=== PATIENT | female | born 1965 | race African-American/Black ===

== ENCOUNTER 2018-02-11 12:45 | Emergency (ER) | payer MEDICAID, OTHER ==
[~2018-02-11] VITALS: Ht 167.6 cm; Wt 78.0 kg
[~2018-02-11 12:45] MED LIST: CRAN1CAP5; UNK MEDS
[2018-02-11] MEDS ORDERED: HYDROCODONE/APAP 7.5/325MG 1 TAB TABLET PO PRN (16:45)
[2018-02-11] MEDS ORDERED: LIDOCAINE HCL 4% CREAM 76GM TUBE TP ONE (16:45)
[2018-02-11 18:45] VITALS: BP 123/88
[2018-02-11] MEDS ORDERED: HYDROCORTISONE 2.5% RECTAL CREAM 30GM PR SCH (21:00)
== END 2018-02-11 18:58 | disposition home or self-care (01) ==
LOC: ER 12:45
DX: K64.4 Residual hemorrhoidal skin tags (principal); F17.200 Nicotine dependence, unspecified, uncomplicated; Z98.890 Other specified postprocedural states
CPT/HCPCS: 99283; Z7610

== ENCOUNTER 2018-12-05 20:05 | Emergency (ER) | payer MEDICARE, MEDICAID ==
[~2018-12-05] VITALS: Ht 170.2 cm; Wt 71.3 kg
[2018-12-05] MEDS ORDERED: KETOROLAC 30MG/ML VIAL IV STA (22:36)
[2018-12-05] MEDS ORDERED: DIPHENHYDRAMINE 25MG CAPSULE PO ONE (22:45)
[2018-12-05 23:38] LABS: CHLORIDE 110 mEq/L (98-107)
[2018-12-05 23:39] LABS: HEMATOCRIT. 33.2 % (36.0-48.0); HEMOGLOBIN. 11.3 g/dL (12.0-16.0); MEAN CORPUSCULAR HEMOGLOBIN 33.7 pg (28.0-32.0); MEAN CORPUSCULAR VOLUME 98.6 fL (81.0-99.0); MEAN PLATELET VOLUME 7.1 fl (7.4-10.4); PLATELET 327 x1000/uL (130-400); RED BLOOD CELL COUNT 3.36 mill/uL (4.2-5.4); RED CELL DISTRIBUTION WIDTH 14.6 % (11.6-14.6)
[2018-12-06 02:44] VITALS: BP 116/65
[2018-12-06 06:08] LABS: PLATELET ESTIMATE NORMAL
== END 2018-12-06 03:19 | disposition home or self-care (01) ==
LOC: ER 20:05
DX: S80.862A Insect bite (nonvenomous), left lower leg, initial encounter (principal); S80.861A Insect bite (nonvenomous), right lower leg, initial encounter; M79.661 Pain in right lower leg; M79.662 Pain in left lower leg; F17.210 Nicotine dependence, cigarettes, uncomplicated; W57.XXXA Bitten or stung by nonvenomous insect and other nonvenomous arthropods, initial encounter; Y93.9 Activity, unspecified; Y92.018 Other place in single-family (private) house as the place of occurrence of the external cause
CPT/HCPCS: 36415; 71045; 80053; 83880; 85025; 93005; 96374; 99284; J1885; Q0163